=== PATIENT | male | born 1985 | race American Indian/Alaskan Native ===

== ENCOUNTER 2019-08-08 17:31 | Emergency (ER) | payer OTHER ==
[2019-08-08 17:46] VITALS: BP 132/90
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
== END 2019-08-08 19:02 | disposition home or self-care (01) ==
LOC: ED 17:31
DX: S13.4XXA Sprain of ligaments of cervical spine, initial encounter (principal); F17.200 Nicotine dependence, unspecified, uncomplicated; F12.10 Cannabis abuse, uncomplicated; Z79.899 Other long term (current) drug therapy; V49.59XA Passenger injured in collision with other motor vehicles in traffic accident, initial encounter; Y93.89 Activity, other specified; Y92.410 Unspecified street and highway as the place of occurrence of the external cause; Y99.8 Other external cause status

== ENCOUNTER 2021-08-22 22:24 | Emergency (ER) | payer SELFPAY | END 2021-08-23 06:52 | disposition left against medical advice (07) | LOC: ED 22:24 | DX: Z53.21 Procedure and treatment not carried out due to patient leaving prior to being seen by health care provider (principal) ==